=== PATIENT | female | born 1985 | race Caucasian/White ===

== ENCOUNTER 2018-11-29 14:24 | Emergency (ER) | payer OTHER ==
[2018-11-29 14:38] VITALS: BP 118/71; PULSE 70; TEMP 98.8; BMI 29.2
--- NOTE | 2018-11-29 14:47 | PDOC ---
History of Present Illness - General Chief Complaint: Injury Stated Complaint: RIGHT FOOT INJURY AT WORK Time Seen by Provider: 11/29/18 14:27 - History of Present Illness Initial Comments: 11/29/18 14:44 Chief complaint: Pain right foot History of present illness: While at work today, patient struck the dorsum of the right foot on the bottom of her desk drawer. There was immediate swelling on the top of the foot, which regressed after the use of ice. She took Motrin. There is persistent discoloration and mild pain with ambulation, although she is not limping. Review of systems: Denies any other injury. Denies falling. Denies distal numbness tingling pain or weakness of the foot Past medical history: Healthy female, no active medical or surgical problems, has IUD for contraception. Social/family history reviewed and noncontributory. Physical exam: Alert and oriented well-developed well-nourished no acute distress cheerful and cooperative Afebrile, vital signs normal Right foot: There is a contusion over the mid dorsal aspect of the right foot, with mild swelling and ecchymosis. There is mild point tenderness to deep palpation. There is no deformity, visible or palpable there is no swelling or tenderness of the ankle, medial or lateral malleoli, or fifth metatarsal. Pulses are full. No distal sensory or motor deficits. Impression: Minor contusion, rule out avulsion fracture of the dorsum of the foot Plan: X-ray and further evaluation depending on results.. Past History - Past Medical History Allergies/Adverse Reactions: Allergies Allergy/AdvReac Type Severity Reaction Status Date / Time Penicillins Allergy Intermediate Hives Verified 11/29/18 14:25 Home Medications: Ambulatory Orders Escitalopram Oxalate [Lexapro -] 10 mg PO DAILY 11/29/18 COPD: No Psychiatric Problems: Yes (ANXIETY DEPRESSION) - Suicide/Smoking/Psychosocial Hx Smoking History: Never smoked Information on smoking cessation initiated: No Hx Alcohol Use: No Drug/Substance Use Hx: No *Physical Exam - Vital Signs Last Vital Signs Temp Pulse Resp BP Pulse Ox 98.8 F 70 16 118/71 99 11/29/18 14:25 11/29/18 14:25 11/29/18 14:25 11/29/18 14:25 11/29/18 14:25 Moderate Sedation - Procedure Monitoring Vital Signs: Procedure Monitoring Vital Signs Temperature 98.8 F 11/29/18 14:25 Pulse Rate 70 11/29/18 14:25 Respiratory Rate 16 11/29/18 14:25 Blood Pressure 118/71 11/29/18 14:25 O2 Sat by Pulse Oximetry (%) 99 11/29/18 14:25 ED Treatment Course - RADIOLOGY Radiology Studies Ordered: Category Date Time Status FOOT-RIGHT [RAD] Stat Radiology 11/29/18 14:35 Ordered Medical Decision Making - Medical Decision Making 11/29/18 15:21 X-ray negative Maxwell applied for compression. No distal numbness tingling or pain after application with good capillary refill Rest ice elevation and Motrin recommended. Orthopedic follow-up in one week if symptoms have not resolved. Fully ambulatory and in no distress upon discharge to follow-up as directed *DC/Admit/Observation/Transfer Diagnosis at time of Disposition: Contusion of foot Qualifiers: Encounter type: initial encounter Laterality: right Qualified Code(s): S90.31XA - Contusion of right foot, initial encounter - Discharge Dispostion Disposition: HOME Condition at time of disposition: Stable Decision to Admit order: No - Referrals Referrals: London Ko MD [Staff Physician] - 1 week - Patient Instructions Printed Discharge Instructions: DI for Contusion Additional Instructions: Rest, ice, elevate, Advil or Motrin. Maxwell wrap. Recheck 1 week orthopedist if pain or swelling persists, or if further symptoms develop. - Post Discharge Activity Forms/Work/School Notes: Back to Work
== END 2018-11-29 15:26 | disposition home or self-care (01) ==
LOC: FER 14:24
DX: S90.31XA Contusion of right foot, initial encounter (principal); W22.03XA Walked into furniture, initial encounter; Y93.89 Activity, other specified; Y92.89 Other specified places as the place of occurrence of the external cause; F41.8 Other specified anxiety disorders
CPT/HCPCS: 73630-TC-RT-FY; 99281-25

== ENCOUNTER 2021-07-01 17:12 | Emergency (ER) | payer OTHER ==
[2021-07-01 17:56] VITALS: BP 121/83; PULSE 91; TEMP 98.1; BMI 33.6
[2021-07-01] MEDS ORDERED: SODIUM CHLORIDE 0.9% 500 ML INFUS.BAG IV ONE (18:32)
[2021-07-01 20:40] LABS: BASO % 0.6 % (0-2.0); EOS % 2.1 % (0-4.5); HEMATOCRIT 40.8 % (32.4-45.2); HEMOGLOBIN 13.7 GM/dL (10.7-15.3); LYMPH % 34.3 % (8-40); MCH 29.2 pg (25.7-33.7); MCHC 33.4 g/dl (32.0-36.0); MEAN CELL VOLUME 87.2 fl (80-96); MEAN PLT VOLUME 10.1 fl (7.5-11.1); MONO % 7.4 % (3.8-10.2); NEUT % 55.6 % (42.8-82.8); PLATELET COUNT 210 10^3/uL (134-434); RBC 4.68 M/mm3 (3.60-5.2); RDW 13.4 % (11.6-15.6); WHITE BLOOD COUNT 7.4 K/mm3 (4.0-10.0)
[2021-07-01 20:58] LABS: CHLORIDE 105 mmol/L (98-107); SODIUM 140 mmol/L (136-145)
[2021-07-01 20:59] LABS: MAGNESIUM 2.1 mg/dL (1.8-2.4)
[2021-07-01 21:01] LABS: ANION GAP 7 MMOL/L (8-16); BLOOD UREA NITROGEN 8.7 mg/dL (7-18); CO2 28 mmol/L (21-32)
[2021-07-01 21:02] LABS: PHOSPHOROUS 3.8 mg/dL (2.5-4.9)
[2021-07-01 21:04] LABS: CREATININE 0.6 mg/dL (0.55-1.3); GLUCOSE,RANDOM 77 mg/dL (74-106); SGOT/AST 13 U/L (15-37); SGPT/ALT 19 U/L (13-61)
[2021-07-01 21:05] LABS: BILIRUBIN,TOTAL 0.2 mg/dL (0.2-1); TOT PROT 7.4 g/dl (6.4-8.2)
[2021-07-01 21:06] LABS: ALK PHOS 67 U/L (45-117)
[2021-07-01 21:47] LABS: PH,URINE 7.5 (5.0-8.0); URINE APPEARANCE CLEAR; URINE BILIRUBIN NEGATIVE (NEGATIVE); URINE COLOR YELLOW; URINE GLUCOSE (UA) NEGATIVE (NEGATIVE); URINE KETONE NEGATIVE (NEGATIVE)
[2021-07-01 21:48] LABS: URINE LEUK ESTERASE NEGATIVE (NEGATIVE); URINE NITRITE NEGATIVE (NEGATIVE); URINE PROTEIN NEGATIVE (NEGATIVE); URINE UROBILINOGEN 0.2 mg/dL (0.2-1.0)
== END 2021-07-01 21:58 | disposition home or self-care (01) ==
LOC: JER 17:12
DX: R00.2 Palpitations (principal)
CPT/HCPCS: 36415; 71046-TC-FY; 80053; 81003; 82550; 83735; 84100; 84443; 84484; 84703; 85025; 85379; 87086; 93005; 93010; 99284-25

== ENCOUNTER 2022-04-22 07:57 | Emergency (ER) | payer OTHER ==
[2022-04-22 08:07] VITALS: BMI 32.8
[2022-04-22] MEDS ORDERED: SODIUM CHLORIDE 1,000 ML IV STA (09:00)
[2022-04-22 09:19] LABS: HCG,QUALITATIVE URINE Negative
[2022-04-22 09:35] LABS: HEMATOCRIT 39.7 % (32.4-45.2); HEMOGLOBIN 13.8 G/dL (10.7-15.3); MCHC 34.8 g/dl (32.0-36.0); MEAN CELL VOLUME 86.3 fl (80-96); MEAN PLT VOLUME 9.2 fl (7.5-11.1); PLATELET COUNT 236.7 10^3/uL (134-434); RDW 14.4 % (11.6-15.6); WHITE BLOOD COUNT 10.5 10^3/uL (4.0-10.8)
[2022-04-22 09:36] LABS: PLATELET ESTIMATE ADEQUATE
[2022-04-22 09:39] LABS: EPITHELIAL CELLS FEW /hpf
[2022-04-22 09:43] LABS: ALBUMIN 3.8 g/dl (3.4-5.0); BILIRUBIN,TOTAL 0.3 mg/dl (0.2-1); CALCIUM 8.9 mg/dl (8.5-10); CREATININE 0.6 mg/dl (0.55-1.3); TOT PROT 6.6 g/dl (6.4-8.2)
[2022-04-22] MEDS ORDERED: FAMOTIDINE 20 MG/50 ML IVPB 20 MG/50 ML MG IVPB ONE ×2 (10:03→10:05)
[2022-04-22 14:10] VITALS: BP 117/77; PULSE 84; RESP 16; TEMP 99.5
[2022-04-22] MEDS ORDERED: ACETAMINOPHEN 1000 MG/100 ML BAG IVPB ONE (17:45)
[2022-04-22] MEDS ORDERED: ACETAMINOPHEN INJECTION 100 ML IVPB ONE (17:46)
== END 2022-04-22 18:52 | disposition home or self-care (01) ==
LOC: FER 07:57
PROC: 3E0333Z Introduction of Anti-inflammatory into Peripheral Vein, Percutaneous Approach (ICD-10-PCS; principal; 2022-04-22)
PROC: 3E033GC Introduction of Other Therapeutic Substance into Peripheral Vein, Percutaneous Approach (ICD-10-PCS; 2022-04-22)
PROC: 3E0337Z Introduction of Electrolytic and Water Balance Substance into Peripheral Vein, Percutaneous Approach (ICD-10-PCS; 2022-04-22)
DX: K51.90 Ulcerative colitis, unspecified, without complications (principal)
CPT/HCPCS: 36415; 74177-TC; 76705-TC; 80053; 81003; 81015; 84703; 85027; 87086; 99285-25

== ENCOUNTER 2023-04-19 09:46 | Day surgery (SDC) | payer OTHER ==
[2023-04-19 10:36] VITALS: BMI 31.1
[2023-04-19 10:52] LABS: ALBUMIN 4.4 g/dl (3.4-5.0); BILIRUBIN,TOTAL 0.7 mg/dl (0.2-1); BLOOD UREA NITROGEN 11.5 mg/dl (7-18); CALCIUM 9.2 mg/dl (8.5-10.1); CREATININE 0.6 mg/dl (0.6-1.3); POTASSIUM 4.3 mmol/L (3.5-5.1); SGPT/ALT 8.3 U/L (7-52); TOT PROT 6.4 g/dl (6.4-8.2)
[2023-04-19 10:56] LABS: HEMATOCRIT 42.8 % (32.4-45.2); HEMOGLOBIN 14.4 G/dL (10.7-15.3); MCH 29.7 pg (25.7-33.7); MCHC 33.7 g/dl (32.0-36.0); MEAN CELL VOLUME 88.3 fl (80-96); MEAN PLT VOLUME 8.5 fl (7.5-11.1); PLATELET COUNT 279.7 10^3/uL (134-434); RBC 4.85 10^6/uL (3.60-5.2); RDW 14.4 % (11.6-15.6); WHITE BLOOD COUNT 10.1 10^3/uL (4.0-10.8)
[2023-04-19 11:06] LABS: PLATELET ESTIMATE ADEQUATE
[2023-04-19] MEDS ORDERED: KETAMINE HCL 500 MG/10 ML VIAL ONE (11:22)
[2023-04-19 13:35] VITALS: RESP 18; TEMP 98
[2023-04-19 13:36] VITALS: BP 116/77; PULSE 84
== END 2023-04-19 13:00 | disposition home or self-care (01) ==
LOC: FECT 09:46
PROVIDERS: ATTEND Psychiatry & Neurology Psychiatry
PROC: GZB4ZZZ Other Electroconvulsive Therapy (ICD-10-PCS; principal; 2023-04-19 11:35)
DX: F32.A Depression, unspecified (principal)
CPT/HCPCS: 36415; 80053; 81025; 85025; 90870; 94760

== ENCOUNTER 2023-04-21 06:25 | Day surgery (SDC) | payer OTHER ==
[2023-04-08 09:54] VITALS: BMI 31.0
[2023-04-21] MEDS ORDERED: KETAMINE HCL 500 MG/10 ML VIAL ONE (08:01)
[2023-04-21 09:19] VITALS: PULSE 72; RESP 18
[2023-04-21 10:26] VITALS: BP 116/71
[2023-04-21 10:30] VITALS: TEMP 97
== END 2023-04-21 10:10 | disposition home or self-care (01) ==
LOC: FECT 06:25
PROVIDERS: ATTEND Psychiatry & Neurology Psychiatry
PROC: GZB4ZZZ Other Electroconvulsive Therapy (ICD-10-PCS; principal; 2023-04-21 08:23)
DX: F32.A Depression, unspecified (principal)
CPT/HCPCS: 90870; 93005; 93010; 94760

== ENCOUNTER 2023-04-26 07:25 | Day surgery (SDC) | payer OTHER ==
[2023-04-15 14:12] VITALS: BMI 31.0
[2023-04-26] MEDS ORDERED: KETAMINE HCL 500 MG/10 ML VIAL ONE (08:29)
[2023-04-26 10:14] VITALS: BP 112/73; PULSE 73; RESP 20; TEMP 97.3
== END 2023-04-26 10:14 | disposition home or self-care (01) ==
LOC: FECT 07:25
PROVIDERS: ATTEND Psychiatry & Neurology Psychiatry
PROC: GZB4ZZZ Other Electroconvulsive Therapy (ICD-10-PCS; principal; 2023-04-26 08:48)
DX: F32.A Depression, unspecified (principal)
CPT/HCPCS: 81025; 90870; 94760

== ENCOUNTER 2023-04-28 09:48 | Day surgery (SDC) | payer OTHER ==
[2023-04-21 15:50] VITALS: BMI 31.0
[2023-04-28] MEDS ORDERED: KETAMINE HCL 500 MG/10 ML VIAL ONE (11:25)
[2023-04-28] MEDS ORDERED: ONDANSETRON 4 MG/2 ML VIAL IVPUSH PRN (11:56)
[2023-04-28] MEDS ORDERED: LACTATED RINGERS SOLUTION 1,000 ML IV SCH (12:00)
[2023-04-28 12:36] VITALS: TEMP 98.1
[2023-04-28 12:40] VITALS: RESP 18
[2023-04-28 12:57] VITALS: BP 110/77; PULSE 79
== END 2023-04-28 12:55 | disposition home or self-care (01) ==
LOC: FECT 09:48
PROVIDERS: ATTEND Psychiatry & Neurology Psychiatry
PROC: GZB4ZZZ Other Electroconvulsive Therapy (ICD-10-PCS; principal; 2023-04-28 11:36)
DX: F33.2 Major depressive disorder, recurrent severe without psychotic features (principal)
CPT/HCPCS: 90870; 94760

== ENCOUNTER 2023-05-03 07:28 | Day surgery (SDC) | payer OTHER ==
[2023-04-08 10:04] VITALS: BMI 31.0
[2023-05-03] MEDS ORDERED: KETAMINE HCL 500 MG/10 ML VIAL ONE (08:31)
[2023-05-03 09:52] VITALS: RESP 18
[2023-05-03 10:05] VITALS: BP 128/88; PULSE 69; TEMP 97.9
== END 2023-05-03 10:05 | disposition home or self-care (01) ==
LOC: FECT 07:28
PROVIDERS: ATTEND Psychiatry & Neurology Psychiatry
PROC: GZB4ZZZ Other Electroconvulsive Therapy (ICD-10-PCS; principal; 2023-05-03 08:45)
DX: F32.A Depression, unspecified (principal)
CPT/HCPCS: 81025; 90870; 94760

== ENCOUNTER 2023-05-05 07:19 | Day surgery (SDC) | payer OTHER ==
[2023-04-29 10:55] VITALS: BMI 31.0
[2023-05-05] MEDS ORDERED: KETAMINE HCL 500 MG/10 ML VIAL ONE (09:03)
[2023-05-05] MEDS ORDERED: SUCCINYLCHOLINE CHLORIDE 200 MG/10 ML SYRINGE ONE (09:23)
[2023-05-05] MEDS ORDERED: PROPOFOL 20 ML ONE (09:23)
[2023-05-05 10:24] VITALS: RESP 18; TEMP 97.9
[2023-05-05 10:49] VITALS: BP 122/82; PULSE 82
== END 2023-05-05 10:51 | disposition home or self-care (01) ==
LOC: FECT 07:19
PROVIDERS: ATTEND Psychiatry & Neurology Psychiatry
PROC: GZB4ZZZ Other Electroconvulsive Therapy (ICD-10-PCS; principal; 2023-05-05 09:13)
DX: F32.A Depression, unspecified (principal)
CPT/HCPCS: 90870; 94760

== ENCOUNTER 2023-05-10 09:53 | Day surgery (SDC) | payer OTHER ==
[2023-05-03 16:21] VITALS: BMI 31.0
[2023-05-10] MEDS ORDERED: KETAMINE HCL 500 MG/10 ML VIAL ONE (12:05)
[2023-05-10 13:05] VITALS: RESP 19
[2023-05-10 15:31] VITALS: BP 120/77; PULSE 92; TEMP 97.4
== END 2023-05-10 13:30 | disposition home or self-care (01) ==
LOC: FECT 09:53
PROVIDERS: ATTEND Psychiatry & Neurology Psychiatry
PROC: GZB4ZZZ Other Electroconvulsive Therapy (ICD-10-PCS; principal; 2023-05-10 12:21)
DX: F32.A Depression, unspecified (principal)
CPT/HCPCS: 81025; 90870; 94760

== ENCOUNTER 2023-05-12 07:19 | Day surgery (SDC) | payer OTHER ==
[2023-05-03 16:24] VITALS: BMI 31.0
[2023-05-12] MEDS ORDERED: ONDANSETRON 4 MG/2 ML VIAL IVPUSH PRN (08:13)
[2023-05-12] MEDS ORDERED: LACTATED RINGERS SOLUTION 1,000 ML IV SCH (08:15)
[2023-05-12] MEDS ORDERED: SUCCINYLCHOLINE CHLORIDE 200 MG/10 ML SYRINGE ONE (08:34)
[2023-05-12] MEDS ORDERED: PROPOFOL 20 ML ONE (08:34)
[2023-05-12] MEDS ORDERED: KETOROLAC TROMETHAMINE 30 MG/1 ML VIAL ONE (08:36)
[2023-05-12] MEDS ORDERED: KETAMINE HCL 200 MG/20 ML VIAL ONE (08:36)
[2023-05-12 09:21] VITALS: PULSE 84
[2023-05-12 09:51] VITALS: BP 129/86; RESP 19; TEMP 97.5
== END 2023-05-12 09:45 | disposition home or self-care (01) ==
LOC: FECT 07:19
PROVIDERS: ATTEND Psychiatry & Neurology Psychiatry
PROC: GZB4ZZZ Other Electroconvulsive Therapy (ICD-10-PCS; principal; 2023-05-12 08:43)
DX: F33.2 Major depressive disorder, recurrent severe without psychotic features (principal)
CPT/HCPCS: 90870; 94760